=== PATIENT | male | born 1960 | race Asian ===

== ENCOUNTER 2022-03-02 15:02 | Emergency (ER) | payer BC ==
[~2022-03-02] VITALS: Ht 180.3 cm; Wt 89.0 kg
[2022-03-02 15:13] VITALS: BP 174/98
== END 2022-03-02 19:28 | disposition home or self-care (01) ==
LOC: ER 15:02
DX: S60.221A Contusion of right hand, initial encounter (principal); W19.XXXA Unspecified fall, initial encounter; Y93.89 Activity, other specified; Y92.89 Other specified places as the place of occurrence of the external cause; Y99.8 Other external cause status
CPT/HCPCS: 73130; 99283